=== PATIENT | female | born 1960 | race Two or more races ===

== ENCOUNTER 2020-10-04 14:41 | Emergency (ER) | payer BC, OTHER ==
[~2020-10-04] VITALS: Ht 167.6 cm; Wt 104.3 kg
[2020-10-04 18:54] VITALS: BP 148/70
[2020-10-04] MEDS ORDERED: ACETAMINOPHEN/CODEINE#3 (300/30mg) TAB PO ONE (19:15)
== END 2020-10-04 20:09 | disposition home or self-care (01) ==
LOC: ER 14:41
DX: S16.1XXA Strain of muscle, fascia and tendon at neck level, initial encounter (principal); X58.XXXA Exposure to other specified factors, initial encounter; Y93.89 Activity, other specified; Y92.89 Other specified places as the place of occurrence of the external cause; Y99.8 Other external cause status
CPT/HCPCS: 72040